=== PATIENT | male | born 1980 | race African-American/Black ===

== ENCOUNTER 2017-08-24 17:03 | Inpatient (IN) | payer SELFPAY ==
[~2017-08-24 17:03] MED LIST: Heparin 10,000 UNITS/ 10 ML VIAL ONE; Iopamidol 370 76% 100 ML VIAL ONE; Iopamidol 370 76% 50 ML VIAL FS ONE
[2017-08-24 17:17] LABS: #Basophils 0.2 thou/uL (0.0-0.2); #Eosinphils 0.3 thou/uL (0.0-0.7); #Neutrophils 7.7 thou/uL (1.40-6.50); %Basophils 1.2 % (0.0-1.0); %Lymphocytes 30.3 % (21.0-51.0); %Monocytes 7.9 % (0.0-10.0); %Neutrophils 58.7 % (42.0-75.0); Hemoglobin 15.3 g/dL (14.0-18.0); Mean Corpuscular Hemoglobin 27.5 pg (27.0-31.0); Mean Corpuscular Volume 85.9 fl (80.0-94.0); Mean Platelet Volume 7.5 fL (7.4-10.4); Platelet Count 346 thou/uL (130-400); RBC Distribution Width 12.5 % (11.5-14.5); Red Blood Cell (RBC) Count 5.58 mill/uL (4.70-6.10); White Blood Cell (WBC) Count 13.2 thou/uL (4.8-10.8)
[2017-08-24] MEDS ORDERED: Ketorolac Tromethamine 30 MG/ML VIAL ONE (17:18)
[2017-08-24 17:22] LABS: INR-International Normal Ratio 0.9; PTT 29.5 SEC (22.9-36.1); Prothrombin Time 12.4 SEC (12.0-14.7)
[2017-08-24 17:31] LABS: ALT (SGPT) 25 U/L (8-55); AST (SGOT) 13 U/L (5-34); Albumin 4.4 g/dL (3.5-5.0); Alkaline Phosphatase 62 U/L (40-150); Anion Gap 12 mmol/L (10-20); BUN (Urea Nitrogen) 10 mg/dL (8.9-20.6); Bilirubin, Total 0.5 mg/dL (0.2-1.2); CK (CPK) 129 U/L (30-200); Calc. Creatinine Clearance 0 mL/min (70-130); Carbon Dioxide 29 mmol/L (22-29); Chloride 99 mmol/L (98-107); Estimated GFR-MDRD Greater than 90; Globulin 2.9 g/dL (2.4-3.5); Glucose 137 mg/dL (70-105); Lipase 20 U/L (8-78); Potassium 4.1 mmol/L (3.5-5.1); Protein, Total 7.3 g/dL (6.0-8.3); Sodium 136 mmol/L (136-145)
[2017-08-24] MEDS ORDERED: Fentanyl 100 MCG/2 ML VIAL ONE (17:33)
[2017-08-24 17:35] LABS: CKMB 1.5 ng/mL (0-6.6); Troponin I Less than 0.010 ng/mL (< 0.028)
[2017-08-24] MEDS ORDERED: Midazolam HCl 2 mg/2 ml Vial ONE (17:36)
[2017-08-24] MEDS ORDERED: Metoprolol Tartrate 5 MG/5 ML VIAL ONE (17:50)
[2017-08-24] MEDS ORDERED: Nitroglycerin 100MG/250ML BOT 250 ML ONE (17:51)
[2017-08-24] MEDS ORDERED: Heparin 10,000 UNITS/1 ML VIAL ONE (17:51)
[2017-08-24] MEDS ORDERED: cloNIDine 0.1 MG TAB PO PRN (19:35)
[2017-08-24] MEDS ORDERED: Milk Of Magnesia 30 ML UDCUP PO PRN (19:35)
[2017-08-24] MEDS ORDERED: Acetaminophen/Codeine 30-300mg Tablet PO PRN ×2 (19:35)
[2017-08-24 20:42] VITALS: BMI 24.8
[2017-08-24] MEDS: Sodium Chloride 0.9% 1,000 ML IV SCH (20:56)
[2017-08-24] MEDS ORDERED: Carvedilol 3.125 MG TAB PO SCH (21:00)
[2017-08-24] MEDS: Atorvastatin Calcium 40 MG TAB PO SCH (22:08)
[2017-08-24] MEDS: TICAGRELOR 90 MG TABLET PO SCH (22:08)
--- NOTE | 2017-08-24 23:48 | HP ---
REASON FOR ADMISSION: Chest pain, probable myocardial infarction (did prove to be myocardial infarct ion). HISTORY OF PRESENT ILLNESS: Mr. Michelle is a 37-year-old gentleman. He was working today at work when he had the sudden onset of chest pain just to the right of the midline. It seemed to get somewhat b thomas and then got much worse again. An ambulance was called. The initial EKG did show some ST elev ation, but it was concave up in leads II, III, and AVF and V5 and V6 and was [facility] room, still having chest pain. On arrival to the hospital, he was still having discomfort in his chest. The patient has eaten not just too long before the episode. The patient did not have any worsening of the pain when he lay down or sat up and did not seem to leilani e a difference when he took a deep breath. PAST MEDICAL AND SURGICAL HISTORY: Negative for any major cardiac operations or procedures. No prev ious cardiac problems. MEDICATIONS: None. ALLERGIES: None. REVIEW OF SYSTEMS: Constitutional: No significant weight gain or loss. Vision: No changes. Heari ng: No changes. Pulmonary: No shortness of breath. Cardiac: As outlined above. Gastrointestinal : No nausea, vomiting or diarrhea. Skin: No rashes. Neurologic: No unilateral weakness or numbne ss. Psychiatric: No unusual depression or anxiety. Hematologic: No unusual bruising. Genitourina ry: No burning with urination. PHYSICAL EXAMINATION: GENERAL: Apprehensive appearing 37-year-old -[place] gentleman. VITAL SIGNS: Blood pressure was 130 systolic over 80, pulse was in the 80-90 range. HEENT: Eyes; sclerae nonicteric. Mouth; mucous membranes moist. NECK: Supple. No lymphadenopathy. LUNGS: Clear. No wheezing, rales or rhonchi. CARDIOVASCULAR: Normal S1, normal S2. There is no murmur, rub or gallop. ABDOMEN: Soft and nontender. No hepatosplenomegaly. EXTREMITIES: Warm and dry. No clubbing or cyanosis. There is no edema. LABORATORY AND X-RAY FINDINGS: Initial EKG brought in by the ambulance service looked like some conc ave up ST elevation in the inferior and lateral leads, but the repeat here looked less concave up. Also, there was not ST elevation in V5, V6 on our EKG. At that point, it is unclear if the patient could be having a myocardial infarction versus pericardit is. He was given an intravenous heparin as well as aspirin. The cardiac catheterization lab was not available at that moment. They were finishing a previous frank e when the chemical lab supervisor room did become open, the patient was transported to the cardiac catheterization lab and was indeed found that he was having a myocardial infarction. As outlined in the chart, the patient subsequently had a stent implantation in the circumflex proxima l to the left posterior descending artery, left dominant system. ASSESSMENT: 1. Acute myocardial infarction. Initial diagnosis was not completely cleared for presentation and E KG. 2. History of smoking. 3. No previous cardiac or medical problems. PLAN: 1. As mentioned above, the patient was taken to cardiac catheterization lab on emergency basis and s uccessfully stented. 2. We will check lipids. 3. Check cardiac enzymes. 4. Aspirin, beta blockers and antiplatelet drugs, statins will all be given.
[2017-08-25 00:19] LABS: Troponin I 14.341 ng/mL (< 0.028)
[2017-08-25 05:52] LABS: #Basophils 0.1 thou/uL (0.0-0.2); #Eosinphils 0.3 thou/uL (0.0-0.7); #Lymphocytes 4.6 thou/uL (1.20-3.40); #Monocytes 1.6 thou/uL (0.11-0.59); #Neutrophils 9.2 thou/uL (1.40-6.50); %Basophils 0.8 % (0.0-1.0); %Eosinophils 2.1 % (0.0-10.0); %Lymphocytes 28.9 % (21.0-51.0); %Monocytes 10.2 % (0.0-10.0); %Neutrophils 58.1 % (42.0-75.0); Hemoglobin 14.3 g/dL (14.0-18.0); Mean Corpuscular HGB CONC 31.8 g/dL (32.0-36.0); Mean Corpuscular Hemoglobin 27.2 pg (27.0-31.0); Mean Corpuscular Volume 85.7 fl (80.0-94.0); Mean Platelet Volume 7.7 fL (7.4-10.4); Platelet Count 296 thou/uL (130-400); RBC Distribution Width 12.5 % (11.5-14.5); Red Blood Cell (RBC) Count 5.26 mill/uL (4.70-6.10); White Blood Cell (WBC) Count 15.9 thou/uL (4.8-10.8)
[2017-08-25] MEDS: Sodium Chloride 0.9% 1,000 ML IV SCH (06:25)
[2017-08-25 06:29] LABS: ALT (SGPT) 24 U/L (8-55); AST (SGOT) 37 U/L (5-34); Albumin 3.5 g/dL (3.5-5.0); Alkaline Phosphatase 51 U/L (40-150); Anion Gap 9 mmol/L (10-20); BUN (Urea Nitrogen) 8 mg/dL (8.9-20.6); Bilirubin, Total 0.6 mg/dL (0.2-1.2); Calc. Creatinine Clearance 128 mL/min (70-130); Calcium 9.1 mg/dL (7.8-10.44); Carbon Dioxide 25 mmol/L (22-29); Chloride 107 mmol/L (98-107); Estimated GFR-MDRD Greater than 90; Globulin 2.4 g/dL (2.4-3.5); Glucose 96 mg/dL (70-105); Potassium 4.1 mmol/L (3.5-5.1); Protein, Total 5.9 g/dL (6.0-8.3); Sodium 137 mmol/L (136-145)
[2017-08-25 06:38] LABS: Critical Call Chem Troponin I RESULT DECREASING; Troponin I 10.344 ng/mL (< 0.028)
[2017-08-25] MEDS: Carvedilol 3.125 MG TAB PO SCH ×2 (08:48→21:16)
[2017-08-25] MEDS: Lisinopril 2.5 MG TAB PO SCH (08:48)
--- NOTE | 2017-08-25 08:58 | PRG ---
DATE OF SERVICE: 08/25/2017. SUBJECTIVE: Mr. Michelle is doing well. No chest pain or pressure. OBJECTIVE: VITAL SIGNS: Blood pressure 120/79, pulse 60. LUNGS: Clear. CARDIAC: Normal S1, S2. ABDOMEN: Soft, nontender. Right groin is nontender. EXTREMITIES: No edema. PERTINENT LABORATORY: The peak troponin was 14. EKG after the procedure yesterday was normal. ASSESSMENT: 1. Status post myocardial infarction with successful stent implantation and distal circumflex left d ominant system. 2. Normal left ventricular function and wall motion. 3. Slight increase in troponin levels. PLAN: 1. Aspirin. 2. Ticagrelor. 3. Statin. 4. Check lipid profile. 5. Beta devonte. 6. RASHEEDA inhibitor. 7. Probably home tomorrow if doing well.
[2017-08-25 08:59] LABS: Cardiac Risk 4.1 (Less than 4.5)
[2017-08-25] MEDS ORDERED: FLU VACC QS2017-18 36 mo. & older 0.5 ML SYRINGE IM ONE (09:00)
[2017-08-25] MEDS: TICAGRELOR 90 MG TABLET PO SCH ×2 (10:32→21:15)
--- NOTE | 2017-08-25 15:59 | DIS ---
DATE OF ADMISSION: 08/24/2017 DATE OF DISCHARGE: 08/26/2017 The patient will be going home tomorrow. FINAL DIAGNOSES: 1. Status post myocardial infarction with small rise in troponin levels. 2. History of smoking. The patient has stopped. MEDICATIONS AT THE TIME OF DISCHARGE: 1. Aspirin 81 mg daily. 2. Brilinta 90 mg twice a day. 3. Carvedilol 3.125 mg twice a day. 4. Lisinopril 2.5 mg a day. 5. Atorvastatin 20 mg qhs Please see admission note for full details. Briefly, this gentleman came to the hospital with chest pain. Initially, the EKG showed concave up ST elevation in the inferolateral leads. Clinically, it was unclear whether it is a myocardial infarction or pericarditis. The initial EKG brought in by the ambulance was really very suspicious for pericarditis. Decision was made to go to the cardiac catheterization lab. Initially, there was no cardiac geophysical laboratory supervisor available, but eventually geophysical laboratory supervisor became open and we were able to go to the geophysical laboratory supervisor. At that time, we found that he had the followin. Left main normal. 2. LAD, there is a normal vessel with a mid-LAD bridge. 3. Circumflex, left dominant, 90% ulcerative plaque before the left posterior descending artery. Right is nondominant with no obstructive stenosis. The patient had a stent placed 2.5 x 24 mm drug-coated stent was placed, Promus and postdilated. The ejection fraction was normal with an ejection fraction of 60%. No wall motion abnormalities were seen. The patient did well. The peak troponin level was only 14. Other laboratory, his cholesterol is 142, LDL 68, HDL 35, triglyceride 194. The patient will be tentatively going home tomorrow to see us in the office next week. I gave him samples of Brilinta in case it is too expensive to buy. We will give him samples. If it is prohibitive long- term, could change to Plavix, but we would like to at least give him an initial course of Brilinta. The patient will be tentatively released home tomorrow. [facility]
[2017-08-25] MEDS ORDERED: Sodium Chloride 0.9% 10 ML ONE (20:50)
[2017-08-25] MEDS: Atorvastatin Calcium 40 MG TAB PO SCH (21:14)
[2017-08-25] MEDS: traMADol HCl 50 MG TAB PO PRN (21:17)
[2017-08-26] MEDS: Lisinopril 2.5 MG TAB PO SCH (08:37)
[2017-08-26] MEDS: TICAGRELOR 90 MG TABLET PO SCH (08:39)
[2017-08-26] MEDS: traMADol HCl 50 MG TAB PO PRN (08:39)
[2017-08-26] MEDS: Carvedilol 3.125 MG TAB PO SCH (08:39)
[2017-08-26 11:52] VITALS: BP 112/67; TEMP 97.4
--- NOTE | 2017-10-28 14:00 | EKG ---
Test Reason : POST CATH Blood Pressure : / mmHG Vent. Rate : 066 BPM Atrial Rate : 066 BPM P-R Int : 122 ms QRS Dur : 086 ms QT Int : 370 ms P-R-T Axes : 047 077 038 degrees QTc Int : 387 ms Normal sinus rhythm Normal ECG When compared with ECG of 09-NOV-1998 01:28, No significant change was found Confirmed by NAY MCBRIDE MD ([id number]) on 10/28/2017 2:00:03 PM Referred By: Fernando REBOLLEDO Confirmed By:NAY MCBRIDE MD
== END 2017-08-26 16:36 | disposition home or self-care (01) | DRG 247 ==
LOC: ERS 17:03 → CCL 17:57 → CCU 19:32 → 2NO 08-25 09:40
PROVIDERS: ADMIT Internal Medicine Cardiovascular Disease; ATTEND Internal Medicine Cardiovascular Disease
PROC: 4A023N7 Measurement of Cardiac Sampling and Pressure, Left Heart, Percutaneous Approach (ICD-10-PCS; principal; 2017-08-24)
PROC: 027034Z Dilation of Coronary Artery, One Artery with Drug-eluting Intraluminal Device, Percutaneous Approach (ICD-10-PCS; 2017-08-24)
PROC: B2111ZZ Fluoroscopy of Multiple Coronary Arteries using Low Osmolar Contrast (ICD-10-PCS; 2017-08-24)
PROC: B2151ZZ Fluoroscopy of Left Heart using Low Osmolar Contrast (ICD-10-PCS; 2017-08-24)
DX: I21.9 Acute myocardial infarction, unspecified (principal); F17.210 Nicotine dependence, cigarettes, uncomplicated; I25.10 Atherosclerotic heart disease of native coronary artery without angina pectoris; Z79.01 Long term (current) use of anticoagulants; Z79.82 Long term (current) use of aspirin
CPT/HCPCS: 36415; 76942; 80053; 80061; 82553; 83690; 84484; 85025; 85347; 85610; 85730; 92928; 93005; 93010; 93458; 93798; 96374; 99152; 99153; A4216; C1725; C1769; C1874; C1887; C9600; J1644; J1885; J2250; J3010

== ENCOUNTER 2018-05-10 20:55 | Emergency (ER) | payer BC, SELFPAY ==
[2018-05-10] MEDS ORDERED: Pantoprazole 40 MG VIAL ONE (21:37)
[2018-05-10] MEDS ORDERED: Lidocaine Viscous Sol 2% 15 ml UD Cup ONE (21:37)
[2018-05-10] MEDS ORDERED: Mag-Al 1200 mg/1200 mg/30 ML UDCUP ONE (21:37)
[2018-05-10 21:38] LABS: #Basophils 0.1 thou/uL (0.0-0.2); #Eosinphils 0.1 thou/uL (0.0-0.7); #Lymphocytes 3.5 thou/uL (1.20-3.40); #Monocytes 1.1 thou/uL (0.11-0.59); #Neutrophils 9.1 thou/uL (1.40-6.50); %Basophils 0.8 % (0.0-1.0); %Eosinophils 0.5 % (0.0-10.0); %Lymphocytes 25.3 % (21.0-51.0); %Neutrophils 65.4 % (42.0-75.0); Hemoglobin 15.5 g/dL (14.0-18.0); Mean Corpuscular HGB CONC 31.7 g/dL (32.0-36.0); Mean Corpuscular Hemoglobin 25.9 pg (27.0-31.0); Mean Corpuscular Volume 81.8 fL (78.0-98.0); Mean Platelet Volume 7.9 fL (7.4-10.4); Platelet Count 283 thou/uL (130-400); RBC Distribution Width 11.8 % (11.5-14.5); Red Blood Cell (RBC) Count 5.97 mill/uL (4.70-6.10); White Blood Cell (WBC) Count 13.9 thou/uL (4.8-10.8)
[2018-05-10 21:51] LABS: ALT (SGPT) 19 U/L (8-55); AST (SGOT) 18 U/L (5-34); Albumin 4.7 g/dL (3.5-5.0); Alkaline Phosphatase 52 U/L (40-150); Anion Gap 13 mmol/L (10-20); BUN (Urea Nitrogen) 11 mg/dL (8.9-20.6); CK (CPK) 324 U/L (30-200); Calc. Creatinine Clearance 0 mL/min (70-130); Calcium 10.2 mg/dL (7.8-10.44); Carbon Dioxide 24 mmol/L (22-29); Chloride 103 mmol/L (98-107); Estimated GFR-MDRD 82; Globulin 2.8 g/dL (2.4-3.5); Glucose 107 mg/dL (70-105); Lipase 15 U/L (8-78); Protein, Total 7.5 g/dL (6.0-8.3); Sodium 136 mmol/L (136-145)
[2018-05-10 21:55] LABS: CKMB 2.5 ng/mL (0-6.6); Troponin I Less than 0.010 ng/mL (< 0.028)
[2018-05-10 23:10] LABS: Troponin I Less than 0.010 ng/mL (< 0.028)
--- NOTE | 2018-05-11 07:39 | RAD ---
TWO VIEWS OF THE CHEST: 05/10/18 COMPARISON: None. HISTORY: Right sided chest pain for a few hours. FINDINGS: Two views of the chest show normal sized cardiomediastinal silhouette. There is no evidence of consol idation, mass, or pleural effusion. The bones are unremarkable. IMPRESSION: No evidence of acute cardiopulmonary disease. POS: [facility]
== END 2018-05-10 23:38 | disposition home or self-care (01) ==
LOC: ERS 20:55
DX: K21.9 Gastro-esophageal reflux disease without esophagitis (principal); R11.2 Nausea with vomiting, unspecified; F41.9 Anxiety disorder, unspecified; Z87.891 Personal history of nicotine dependence; Z79.82 Long term (current) use of aspirin
CPT/HCPCS: 36415; 71046; 80053; 82553; 83690; 84484; 85025; 93005; 96374; C9113

== ENCOUNTER 2021-05-08 19:12 | Emergency (ER) | payer OTHER, BC ==
[2021-05-08] MEDS ORDERED: Ketorolac Tromethamine 30 MG/ML VIAL ONE (19:32)
== END 2021-05-08 19:39 | disposition home or self-care (01) ==
LOC: ERS 19:12
DX: M54.6 Pain in thoracic spine (principal); I25.2 Old myocardial infarction; Z87.891 Personal history of nicotine dependence; V89.2XXA Person injured in unspecified motor-vehicle accident, traffic, initial encounter
CPT/HCPCS: 96372; 99283; J1885